=== PATIENT | female | born 1990 | race African-American/Black ===

== ENCOUNTER 2018-07-11 09:56 | Inpatient (IN) ==
[2018-07-11 10:47] LABS: Basophils % 0.3 % (0.0-0.8); Eosinophils # 0.1 10*3/uL (0.0-0.87); Eosinophils % 1.1 % (0.00-10.9); Hematocrit 35.9 VOL% (35.7-47.0); Hemoglobin 11.8 GM/DL (12.0-16.0); Immature Granulocytes % 0.6 %; Immature Granulocytes Absolute 0.04 #; Lymphocytes # 1.5 10*3/uL (1.4-4.0); Mean Corpuscular HGB Conc 32.9 GM/DL (32-36); Mean Corpuscular Hemoglobin 28 PG (27-34); Mean Corpuscular Volume 86.1 FL (87-102); Monocytes # 0.6 10*3/uL (0.11-0.8); Monocytes % 9.6 % (1.7-12.7); Neutrophils # 4.4 10*3/uL (1.4-7.4); Neutrophils % 65.4 % (38.7-73.9); Platelet Count 158 T/CUMM (130-400); Red Blood Count 4.17 MC/CUMM (3.8-5.5); Red Cell Distribution Width 14.1 % (9.3-17.3); White Blood Count 6.7 T/CUMM (4-12)
[2018-07-11 10:56] LABS: Apearance,Urine CLEAR (Clear); Bacteria,Urine Occasional /HPF (Few); Bilirubin,Urine Negative (Negative); Blood, Urine Small mg/dL (Negative); Glucose,Urine (UA) Negative (Negative); Ketones,Urine Negative (Negative); Mucus,Urine Occasional /LPF (Occasional); Nitrite,Urine Negative (Negative); Protein,Urine Negative; RBC,Urine 1 /HPF (0-4); Squamous Epithelial Cell,Urine Occasional /HPF (0-10); Urine Color Yellow (Yellow); Urine Urobilinogen < 2.0 EU/DL (0.2-1.0); WBC,Urine 3 /HPF (0-6)
[2018-07-11 10:57] LABS: INR 0.9; PT Patient Result 9.8 SECS; Partial Thromboplastin Time 28.1 SECS (0-40)
[2018-07-11 11:23] LABS: Albumin 2.6 G/DL (3.4-5.0); Bilirubin,Direct 0.14 MG/DL (0.0-0.20); Bilirubin,Total 0.5 MG/DL (0.2-1.0); Calcium 8.9 MG/DL (8.5-10.1); Osmolality,Calculated 280.1 MOS/KG (273-304); Potassium 3.7 MMOL/L (3.5-5.1); Total Protein 6.2 G/DL (6.4-8.3); Uric Acid 6.8 MG/DL (2.6-6.0)
[2018-07-11] MEDS ORDERED: MEPERIDINE 50 MG/1 ML VIAL IV PRN (12:26)
[2018-07-11] MEDS ORDERED: BUTORPHANOL 2 MG/ML VIAL IV PRN (12:26)
[2018-07-11] MEDS ORDERED: ONDANSETRON 4 MG/2 ML VIAL IV PRN ×2 (12:26→22:21)
[2018-07-11] MEDS ORDERED: OXYTOCIN/LR 20 UNIT/1,000 ML BAG IV SCH (12:30)
[2018-07-11] MEDS: LACTATED RINGERS 1,000 ML IV SCH ×2 (12:30→19:47)
[2018-07-11] MEDS ORDERED: hydrALAZINE 20 MG/1 ML VIAL IV ONE (12:35)
[2018-07-11] MEDS: LABETALOL 200 MG TABLET PO SCH (15:11)
[2018-07-11] MEDS ORDERED: AMPICILLIN INJ 2,000 MG in SODIUM CHLORIDE 0.9% 100 ML IV ONE (18:10)
[2018-07-11] MEDS ORDERED: ceFAZolin 1,000 MG VIAL IM ONE (21:00)
[2018-07-11] MEDS ORDERED: LABETALOL 200 MG TABLET PO ONE (21:00)
[2018-07-11] MEDS ORDERED: CITRIC ACID/SODIUM CITRATE 30 ML UDCUP PO ONE (21:02)
[2018-07-11] MEDS ORDERED: FAMOTIDINE 20 MG/2 ML VIAL IV ONE (21:02)
[2018-07-11] MEDS ORDERED: OXYTOCIN 10 UNIT/ML VIAL IM ONE (21:04)
[2018-07-11] MEDS ORDERED: OXYTOCIN/LR 30 UNIT/1,000 ML BAG IV ONE (21:12)
[2018-07-11] MEDS ORDERED: BUPIVACAINE SPINAL 0.75% 2 ML AMP SPINAL ONE (21:24)
[2018-07-11] MEDS ORDERED: OXYTOCIN 30 UNIT in DEXTROSE 5% LACTATED RINGERS 1,000 ML IV ONE (21:30)
[2018-07-11] MEDS ORDERED: AMPICILLIN INJ 1,000 MG in SODIUM CHLORIDE 0.9% 100 ML IV SCH (22:00)
[2018-07-11] MEDS ORDERED: IBUPROFEN 800 MG TABLET PO PRN (22:21)
[2018-07-11] MEDS ORDERED: ACETAMINOPHEN 325 MG TABLET PO PRN (22:21)
[2018-07-11] MEDS ORDERED: OXYTOCIN/LR 20 UNIT/1,000 ML BAG IV ONE (22:21)
[2018-07-11] MEDS ORDERED: MORPHINE 10 MG/10 ML VIAL ONE (22:26)
[2018-07-11] MEDS ORDERED: ePHEDrine 50 MG/ML AMP ONE (22:27)
[2018-07-11] MEDS ORDERED: ONDANSETRON 4 MG/2 ML VIAL ONE (22:27)
[2018-07-11] MEDS ORDERED: RHO(D) IMMUNE GLOBULIN 300 MCG SYRINGE IM ONE (22:30)
[2018-07-11] MEDS ORDERED: LACTATED RINGERS 1,000 ML IV SCH (22:30)
[2018-07-11 23:15] LABS: Cord Arterial Blood HCO3 20.8 MMOL/L
[2018-07-11 23:18] LABS: Cord Venous Blood HCO3 20.6 MMOL/L; Cord Venous Blood PCO2 39.1 MMHG; Cord Venous Blood PO2 37.2 MMHG
[2018-07-12] MEDS: LABETALOL 200 MG TABLET PO SCH ×3 (00:51→21:52)
[2018-07-12] MEDS: DOCUSATE SODIUM 100 MG CAPSULE PO SCH ×2 (09:10→21:52)
[2018-07-12] MEDS: MULTIVITAMIN (PRENATAL) TABLET PO SCH (09:10)
[2018-07-12] MEDS ORDERED: ceFAZolin 1,000 MG in SYRINGE 1 EACH IV SCH (13:30)
[2018-07-12 14:18] LABS: Basophils % 0.2 % (0.0-0.8); Eosinophils % 0.2 % (0.00-10.9); Hematocrit 31.9 VOL% (35.7-47.0); Hemoglobin 10.9 GM/DL (12.0-16.0); Immature Granulocytes % 0.7 %; Immature Granulocytes Absolute 0.08 #; Lymphocytes # 1.1 10*3/uL (1.4-4.0); Lymphocytes % 10.5 % (21.3-54.2); Mean Corpuscular HGB Conc 34.2 GM/DL (32-36); Mean Corpuscular Hemoglobin 30 PG (27-34); Mean Corpuscular Volume 87.4 FL (87-102); Mean Platelet Volume 12.7 FL (9.6-12.0); Monocytes # 0.7 10*3/uL (0.11-0.8); Neutrophils # 8.9 10*3/uL (1.4-7.4); Neutrophils % 82.4 % (38.7-73.9); Platelet Count 157 T/CUMM (130-400); Red Blood Count 3.65 MC/CUMM (3.8-5.5); Red Cell Distribution Width 14.3 % (9.3-17.3); White Blood Count 10.8 T/CUMM (4-12)
[2018-07-12] MEDS: SIMETHICONE CHEW 80 MG TABLET PO PRN (21:52)
[2018-07-12] MEDS: MAGNESIUM HYDROXIDE SUSP 30 ML UDCUP PO PRN (21:52)
[2018-07-13] MEDS ORDERED: DOCUSATE SODIUM 100 MG/10 ML UDCUP PO SCH (09:00)
[2018-07-13] MEDS: SIMETHICONE CHEW 80 MG TABLET PO PRN (09:06)
[2018-07-13] MEDS: MULTIVITAMIN (PRENATAL) TABLET PO SCH (09:06)
[2018-07-13] MEDS: LABETALOL 200 MG TABLET PO SCH (09:06)
[2018-07-13] MEDS: MAGNESIUM HYDROXIDE SUSP 30 ML UDCUP PO PRN (09:06)
[2018-07-13 11:50] VITALS: BP 122/70
[2018-07-13] MEDS ORDERED: DIPH/TET/ACEL PERT BOOSTER VACCINE 0.5 ML VIAL IM ONE (15:24)
== END 2018-07-13 16:30 | disposition home or self-care (01) | DRG 540 ==
LOC: N.LDOUT 09:56 → N.LD 09:58 → N.OB 07-12 12:39
PROVIDERS: ADMIT Obstetrics & Gynecology; ATTEND Nurse Practitioner
PROC: LDCSECT (ICD-10-PCS; 2018-07-11 21:25)